=== PATIENT | female | born 1945 | race Caucasian/White ===

== ENCOUNTER 2023-02-09 06:35 | Emergency (ER) | payer OTHER ==
[~2023-02-09] VITALS: Ht 165.1 cm; Wt 73.9 kg
[~2023-02-09 06:35] MED LIST: ACTICAL SOFTGEL1 CAP PO; GLUCOPHAGE XR500 MG PO; [UNRECOGNIZED DRUG - OTHER]
[2023-02-09] MEDS ORDERED: GLIPIZIDE XL5 MG PO (06:48)
[2023-02-09] MEDS ORDERED: ENALAPRIL MALEA10 MG PO (06:49)
[2023-02-09] MEDS ORDERED: DIGOXIN125 MCG PO (06:50)
== END 2023-02-09 14:39 | disposition home or self-care (01) ==
LOC: ER 06:35
DX: R10.31 Right lower quadrant pain (principal); E11.9 Type 2 diabetes mellitus without complications; Z79.84 Long term (current) use of oral hypoglycemic drugs; M19.90 Unspecified osteoarthritis, unspecified site; I10 Essential (primary) hypertension; Z20.822 Contact with and (suspected) exposure to COVID-19